=== PATIENT | female | born 1970 | race Caucasian/White ===

== ENCOUNTER 2019-02-23 15:09 | Emergency (ER) | payer BC ==
--- OUTSIDE RECORDS SUMMARY | 2019-02-23 15:12 | XMS REPORT | Clinical Summary ---
:1970 Author Organization [facility] Address [address] [place] [id number] Care Team Providers Name Role Phone Unavailable Primary Care Provider Unavailable Allergies Not on File Medications Not on file Active Problems Not on file Encounters Date Type Specialty Care Team Description 03/24/2018 Lab Lab Duglas Moy MD after 02/22/2018 Social History Tobacco Use Types Packs/Day Years Used Date Never Assessed Sex Assigned at Date Recorded Not on file Job Start Date Occupation Industry Not on file Not on file Not on file Travel History Travel Start Travel End No recent travel history available. Last Filed Vital Signs Not on file Plan of Treatment Health Maintenance Due Date Last Done Comments INFLUENZA VACCINE 04/15/2019 Procedures Procedure Name Priority Date/Time Associated Diagnosis Comments SURGICAL PATHOLOGY Routine 03/24/2018 2:36 PM Results for this REQUEST CDT procedure are in the results section. after 02/22/2018 Results Surgical pathology request (03/24/2018 2:36 PM CDT) [facility] DEPARTMENT OF PATHOLOGY AND GENOMIC MEDICINE Surgical pathology See link below [facility] DEPARTMENT OF report for PDF Lab PATHOLOGY AND Report GENOMIC MEDICINE Result status This is Final [facility] DEPARTMENT OF Report to PATHOLOGY AND [id number] GENOMIC MEDICINE Specimen Performing Organization Address City/State/[place] [facility] Phone Number [facility] DEPARTMENT OF PATHOLOGY AND [address] [place] [address] GENOMIC MEDICINE after 02/22/2018 Advance Directives Patient has advance care planning documents on file. For more information, please contact:[address] [address]
[2019-02-23 15:48] LABS: Urine Blood 1+ (NEG); Urine Glucose NEGATIVE (NEG); Urine Protein NEGATIVE (NEG); Urine pH 5.5 (5.0-7.0)
[2019-02-23] MEDS ORDERED: MORPHINE 4 MG/ML SYR ONE (15:55)
[2019-02-23] MEDS ORDERED: ONDANSETRON 4 MG/2 ML VIAL ONE (15:55)
--- NOTE | 2019-02-23 16:29 | RAD REPORT ---
EXAM DESCRIPTION: RAD - Hip Left 2 View - 02/23/2019 4:20 pm CLINICAL HISTORY: Left pain COMPARISON: None. FINDINGS: AP and frogleg views of the left hip were obtained. There is no fracture or dislocation. N o acute or destructive bony process seen. No soft tissue abnormality. IMPRESSION: Negative left hip examination for acute or significant findings.
--- NOTE | 2019-02-23 16:32 | RAD REPORT ---
EXAM DESCRIPTION: RAD - Lumbar Spine 3 Views - 02/23/2019 4:20 pm CLINICAL HISTORY: Back pain, radiculopathy COMPARISON: None. FINDINGS: A three-view lumbar spine examination was performed. Lumbar bodies are normal in height fashion. Lumbosacral transition body is present labeled L5. L5-S1 than on the disc space. There is slight left lateral subluxation of L3 relative to L4 along with slig ht retrolisthesis of L3. The L3-4 disc space narrowed. No other disc space narrowing. No pars defects identified. IMPRESSION: Degenerative disc disease L3-4 with left lateral and posterior slight subluxation of L3. No acute finding.
--- NOTE | 2019-02-23 17:03 | ER ---
Nurse's Notes [facility] Name: Ashley Mane Age: 48 yrs Sex: Female : 1970 Arrival Date: 02/23/2019 Time: 15:11 Bed 23 Private MD: Diagnosis: Sciatica, left side Presentation: 02/23 15:11 Presenting complaint: Patient states: i have this L hip pain that started 2 days ago, hj denies trauma to the area; i couldn't get an appointment with my PCP so i decided to come here;. Transition of care: patient was not received from another setting of care. Onset of symptoms was February 23, 2019. Risk Assessment: Do you want to hurt yourself or someone else? Patient reports no desire to harm self or others. Initial Sepsis Screen: Does the patient meet any 2 criteria? No. Patient's initial sepsis screen is negative. Does the patient have a suspected source of infection? No. Patient's initial sepsis screen is negative. Care prior to arrival: None. 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 - Social history:: Smoking status: Patient/guardian denies using tobacco. Screenin:50 Abuse screen: Denies threats or abuse. Denies injuries from another. Nutritional aj screening: No deficits noted. Tuberculosis screening: No symptoms or risk factors identified. Fall Risk None identified. Assessment: 15:27 General: Appears in no apparent distress. comfortable, Behavior is calm, cooperative, aj appropriate for age. Pain:. 15:27 Pain: Complains of pain in left hip. Neuro: Level of Consciousness is awake, alert, aj obeys commands, Oriented to person, place, time, situation, Appropriate for age. Respiratory: Airway is patent Respiratory effort is even, unlabored, Respiratory pattern is regular, symmetrical. Derm: Skin is intact, is healthy with good turgor, Skin is pink, warm \T\ dry. normal. Musculoskeletal: Circulation, motion, and sensation intact. Range of motion: intact in all extremities, Swelling absent Reports pain in left hip. 16:22 Reassessment: Patient appears in no apparent distress at this time. No changes from aj previously documented assessment. Patient and/or family updated on plan of care and expected duration. Pain level reassessed. Patient is alert, oriented x 3, equal unlabored respirations, skin warm/dry/pink. Patient states feeling better. Patient states symptoms have improved. 17:09 Reassessment: Patient appears in no apparent distress at this time. No changes from aj previously documented assessment. Patient and/or family updated on plan of care and expected duration. Pain level reassessed. Patient is alert, oriented x 3, equal unlabored respirations, skin warm/dry/pink. Patient states feeling better. Patient states symptoms have improved. 17:10 Reassessment: Patient is waiting for family to come get her and take her home. aj Vital Signs: 15:13 BP 130 / 73; Pulse 69; Resp 18; Temp 98.6(O); Pulse Ox 98% on R/A; Weight 84.82 kg; hj Height 5 ft. 9 in. (175.26 cm); Pain 8/10; 16:54 BP 111 / 72; Pulse 58; Resp 16; Pulse Ox 100% on R/A; aj 15:13 Body Mass Index 27.61 (84.82 kg, 175.26 cm) ED Course: 15:11 Patient arrived in ED. hj 15:12 Triage completed. hj 15:14 Arm band placed on left wrist. hj 15:19 Justin Delgado PA is PHCP. [facility] 15:19 Asael Pierce MD is Attending Physician. [facility] 15:20 Aimee Galloway, SYBIL is Primary Nurse. aj 15:50 Patient has correct armband on for positive identification. aj 15:50 Inserted saline lock: 20 gauge in right antecubital area, using aseptic technique. aj Blood collected. 16:20 Lumbar Spine (3 Views) XRAY In Process Unspecified. EDMS 16:20 Hip Left 2 View XRAY In Process Unspecified. EDMS 17:10 No provider procedures requiring assistance completed. IV discontinued, intact, aj bleeding controlled, No redness/swelling at site. Pressure dressing applied. Administered Medications: 15:49 Drug: morphine 4 mg Route: IVP; Site: right antecubital; aj 17:28 Follow up: Response: Pain is decreased aj 15:49 Drug: Zofran 4 mg Route: IVP; Site: right antecubital; aj 17:28 Follow up: Response: No adverse reaction aj 16:54 Drug: TORadol 30 mg Route: IVP; Site: right antecubital; aj 17:28 Follow up: Response: Pain is decreased aj Outcome: 17:02 Discharge ordered by . justin 17:10 Discharged to home ambulatory. aj 17:10 Condition: good 17:10 Discharge instructions given to patient, family, Instructed on discharge instructions, follow up and referral plans. medication usage, Demonstrated understanding of instructions, follow-up care, medications, Prescriptions given X 4. 17:28 Patient left the ED. aj Signatures: Dispatcher [employer] EDAimee Franks, RN RN Justin Nieves PA PA jmm Joaquin, Henry RN RN hj Corrections: (The following items were deleted from the chart) 15:15 15:13 Pulse 69bpm; Resp 18bpm; Pulse Ox 98% RA; Temp 98.6F Oral; 84.82 kg; Height 5 ft. hj 9 in.; BMI: 27.6; Pain 8/10; hj
--- NOTE | 2019-02-23 17:03 | EDPHYS ---
Physician Documentation [facility] Name: Ashley Mane Age: 48 yrs Sex: Female : 1970 Arrival Date: 02/23/2019 Time: 15:11 Bed 23 Private MD: ED Physician Asael Pierce HPI: 02/23 15:35 This 48 yrs old Female presents to ER via Ambulatory with complaints of Hip jmm Pain. 15:35 The patient or guardian reports pain. Onset: The symptoms/episode began/occurred 3 jmm day(s) ago. Modifying factors: The symptoms are alleviated by nothing, the symptoms are aggravated by nothing. Associated signs and symptoms: Pertinent negatives: abdominal pain, altered mental status, chest pain, dizziness, dysuria, fever, headache, incontinence, nausea, shortness of breath, vomiting, weakness. This is a 48 year old female with no chronic medical conditions that presents to the ED with complaints of left leg pain. patient states pain began at her left buttocks and nor radiates down her entire leg. Denies bowel or urinary issues. . 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 - Social history:: Smoking status: Patient/guardian denies using tobacco. ROS: 15:35 Constitutional: Negative for fever, chills, and weight loss, Cardiovascular: Negative jmm for chest pain, palpitations, and edema, Respiratory: Negative for shortness of breath, cough, wheezing, and pleuritic chest pain, Back: Negative for injury and pain. 15:35 MS/extremity: Positive for pain. 15:35 All other systems are negative. Exam: 15:35 Constitutional: This is a well developed, well nourished patient who is awake, alert, jmm and in no acute distress. Head/Face: atraumatic. Eyes: EOMI, no conjunctival erythema appreciated ENT: Moist Mucus Membranes Neck: Trachea midline, Supple Chest/axilla: Normal chest wall appearance and motion. Cardiovascular: Regular rate and rhythm. No edema appreciated Respiratory: Normal respirations, no respiratory distress appreciated Abdomen/GI: Non distended, soft Back: Normal ROM 15:35 Musculoskeletal/extremity: pain is elicited on straight leg raise. . 15:35 Skin: Appearance: Color: normal in color. 15:35 Neuro: Orientation: is normal, Mentation: is normal, Memory: is normal. 15:35 Psych: Behavior/mood is pleasant, cooperative. Vital Signs: 15:13 BP 130 / 73; Pulse 69; Resp 18; Temp 98.6(O); Pulse Ox 98% on R/A; Weight 84.82 kg; hj Height 5 ft. 9 in. (175.26 cm); Pain 8/10; 16:54 BP 111 / 72; Pulse 58; Resp 16; Pulse Ox 100% on R/A; aj 15:13 Body Mass Index 27.61 (84.82 kg, 175.26 cm) hj MDM: 15:34 Patient medically screened. [facility] 17:00 Data reviewed: vital signs, nurses notes. Counseling: I had a detailed discussion with [facility] the patient and/or guardian regarding: the historical points, exam findings, and any diagnostic results supporting the discharge/admit diagnosis, radiology results, the need for outpatient follow up, to return to the emergency department if symptoms worsen or persist or if there are any questions or concerns that arise at home. Response to treatment: the patient's symptoms have mildly improved after treatment, and as a result, I will discharge patient. ED course: I do not suspect cauda equina. patient advised to follow up with pcp and otherwise given strict return precautions. patient understood and agrees with the plan. . 02/23 15:45 Order name: Urine Dipstick--Ancillary (enter results); Complete Time: 15:57 02/23 15:45 Order name: Urine --Ancillary (enter results); Complete Time: 15:57 02/23 15:35 Order name: Lumbar Spine (3 Views) XRAY; Complete Time: 16:37 [facility] 02/23 15:35 Order name: Hip Left 2 View XRAY; Complete Time: 16:37 [facility] 02/23 15:35 Order name: Saline Lock; Complete Time: 15:47 [facility] 02/23 15:36 Order name: Urine Dipstick-Ancillary (obtain specimen); Complete Time: 15:49 [facility] Administered Medications: 15:49 Drug: morphine 4 mg Route: IVP; Site: right antecubital; aj 17:28 Follow up: Response: Pain is decreased aj 15:49 Drug: Zofran 4 mg Route: IVP; Site: right antecubital; aj 17:28 Follow up: Response: No adverse reaction aj 16:54 Drug: TORadol 30 mg Route: IVP; Site: right antecubital; aj 17:28 Follow up: Response: Pain is decreased aj Disposition: 02/23/19 17:02 Discharged to Home. Impression: Sciatica, left side. - Condition is Stable. - Discharge Instructions: Sciatica. - Prescriptions for Ibuprofen 800 mg Oral Tablet - take 1 tablet by ORAL route every 8 hours As needed take with food; 30 tablet. Prednisone 20 mg Oral Tablet - take 3 tablet by ORAL route once daily for 5 days; 15 tablet. Ultracet 37.5- 325 mg Oral Tablet - take 1 tablet by ORAL route every 6 hours - for up to 5 days; do not exceed 8 tablets per day.; 12 tablet. Zanaflex 4 mg Oral Tablet - take 1 tablet by ORAL route every 8 hours As needed; 20 tablet. - Medication Reconciliation Form, Thank You Letter, Antibiotic Education, Prescription Opioid Use form. - Follow up: Private Physician; When: 2 - 3 days; Reason: Recheck today's complaints, Continuance of care, Re-evaluation by your physician. Addendum: 03/01/2019 12:37 Co-signature as Attending Physician, Asael Pierce MD I agree with the assessment and c scales plan of care. Signatures: Dispatcher [employer] Aimee Mata RN RN aj Anderson, Corey, MD MD cha Mickail, Joel, PA PA Lion Salazar RN RN Corrections: (The following items were deleted from the chart) 02/23 17:28 17:02 02/23/2019 17:02 Discharged to Home. Impression: Sciatica, left side. Condition aj is Stable. Forms are Medication Reconciliation Form, Thank You Letter, Antibiotic Education, Prescription Opioid Use. Follow up: Private Physician; When: 2 - 3 days; Reason: Recheck today's complaints, Continuance of care, Re-evaluation by your physician. justin
[2019-02-23] MEDS ORDERED: KETOROLAC 30 MG/ML INJ ONE (17:08)
== END 2019-02-23 17:28 | disposition home or self-care (01) ==
LOC: ER 15:09
DX: M54.32 Sciatica, left side (principal)
CPT/HCPCS: 72100; 81003; 81025; 96374; 96375; 99284; J2405